=== PATIENT | male | born 1950 | race Caucasian/White ===

== ENCOUNTER 2018-01-15 13:36 | Outpatient (CLI) | payer MEDICARE ==
[2018-01-15 14:02] LABS: BASOPHILS # (AUTO) 0.1 10^3/uL (0.0-0.1); BASOPHILS % (AUTO) 0.6 %; EOSINOPHILS # (AUTO) 0.1 10^3/uL (0.0-0.7); EOSINOPHILS % (AUTO) 0.6 %; HGB - HEMOGLOBIN 17.1 g/dL (14.0-18.0); LYMPHOCYTES # (AUTO) 1.8 10^3/uL (1.5-3.5); LYMPHOCYTES % (AUTO) 20.4 %; MEAN CORPUSCULAR HEMOGLOBIN 30.9 pg (27.0-31.0); MEAN CORPUSCULAR HGB CONC 33.9 g/dL (32.0-36.0); MEAN CORPUSCULAR VOLUME 91.1 fL (80.0-94.0); MEAN PLATELET VOLUME 7.1 fL (7.4-11.4); MONOCYTES # (AUTO) 0.4 10^3/uL (0.0-1.0); MONOCYTES % (AUTO) 4.9 %; NEUTROPHILS # (AUTO) 6.3 10^3/uL (1.5-6.6); NEUTROPHILS % (AUTO) 73.5 %; PLT - PLATELET COUNT 231 10^3/uL (130-450); RED BLOOD COUNT 5.55 10^6/uL (4.70-6.10); RED CELL DISTRIBUTION WIDTH 14.1 % (12.0-15.0); WHITE BLOOD COUNT 8.6 x10^3/uL (4.8-10.8)
[2018-01-15 14:09] LABS: BILIRUBIN,URINE NEGATIVE (NEGATIVE); CLARITY,URINE CLEAR (CLEAR); GLUCOSE, URINE (UA) NEGATIVE (NEGATIVE); KETONES,URINE (UA) NEGATIVE (NEGATIVE); LEUKOCYTE ESTERASE, URINE NEGATIVE (NEGATIVE); NITRITE,URINE NEGATIVE (NEGATIVE); OCCULT BLOOD,URINE MODERATE (NEGATIVE); PROTEIN,URINE NEGATIVE (NEGATIVE); UROBILINOGEN,URINE 0.2 (NORMAL) E.U./dL (NORMAL)
[2018-01-15 14:19] LABS: ALBUMIN 4.3 g/dL (3.2-5.5); ALBUMIN/GLOBULIN RATIO 1.2 (1.0-2.2); ALKALINE PHOSPHATASE 62 IU/L (42-121); ALT ALANINE AMINOTRANSFERASE 24 IU/L (10-60); AST ASPARTATE AMINOTRANSFERASE 23 IU/L (10-42); BILIRUBIN,TOTAL 0.8 mg/dL (0.2-1.0); BUN - BLOOD UREA NITROGEN 17 mg/dL (6-20); CALCIUM 9.2 mg/dL (8.5-10.3); CARBON DIOXIDE - CO2 25 mmol/L (21-32); CHLORIDE 103 mmol/L (101-111); CHOL/HDL RATIO 5.4 (<5.0); CHOLESTEROL 308 mg/dL; CREATININE 0.8 mg/dL (0.6-1.2); GFR - MDRD 96 (>89); GLUCOSE 110 mg/dL (70-100); HDL CHOLESTEROL 57 mg/dL; LDL CHOLESTEROL,CALCULATED 217 mg/dL; LDL/HDL RATIO 3.8 (<3.6); SODIUM 137 mmol/L (135-145); TOTAL PROTEIN 7.8 g/dL (6.7-8.2); VLDL CHOLESTEROL 34 mg/dL
[2018-01-15 14:30] LABS: BACTERIA,URINE Rare /HPF (None Seen); RBC,URINE 0-5 /HPF (0-5); SQUAMOUS EPITHELIAL CELL,UR RARE Squamous (<= Few)
[2018-01-15 14:52] LABS: PSA FREE 0.86 ng/mL (0.16-2.81)
[2018-01-15 14:53] LABS: PSA TOTAL 3.83 ng/mL (0.000-2.000)
[2018-01-15 14:57] LABS: THYROID STIMULATING HORMONE 1.28 uIU/mL (0.34-5.60)
[2018-01-18 11:59] LABS: HEPATITIS C ANTIBODY NON-REACTIVE (NON-REACTIVE)
== END 2018-01-15 13:37 | disposition home or self-care (01) ==
LOC: LAB 13:36
PROVIDERS: ATTEND Internal Medicine
DX: R89.9 Unspecified abnormal finding in specimens from other organs, systems and tissues (principal); F32.9 Major depressive disorder, single episode, unspecified; E78.5 Hyperlipidemia, unspecified; R31.1 Benign essential microscopic hematuria; G60.9 Hereditary and idiopathic neuropathy, unspecified; Z11.59 Encounter for screening for other viral diseases; Z79.899 Other long term (current) drug therapy
CPT/HCPCS: 36415; 80053; 80061; 81001; 82607; 83721; 84154; 84443; 85025; 86803; 87086

== ENCOUNTER 2018-01-25 15:02 | Outpatient (CLI) | payer MEDICARE ==
--- NOTE | 2018-01-25 17:30 | XRAY Report ---
COMPLETE LUMBAR SPINE: 01/25/2018 CLINICAL INDICATION: Back pain. FINDINGS: AP, lateral, oblique, cone down views of the lumbar spine demonstrate mild degenerative disk disease. There is no evidence of fracture or subluxation. Vascular calcifications are present. The bowel gas pattern is unremarkable. IMPRESSION: MILD DEGENERATIVE CHANGES IN THE LUMBAR SPINE. TD: 01/25/2018 15:44
== END 2018-01-25 15:03 | disposition home or self-care (01) ==
LOC: DI 15:02
PROVIDERS: ATTEND Physician Assistant Medical
DX: M51.36 Other intervertebral disc degeneration, lumbar region (principal)
CPT/HCPCS: 72110

== ENCOUNTER 2018-12-16 12:29 | Outpatient (CLI) | payer MEDICARE ==
[2018-12-16 13:27] LABS: ALBUMIN 4.1 g/dL (3.2-5.5); ALBUMIN/GLOBULIN RATIO 1.3 (1.0-2.2); ALKALINE PHOSPHATASE 73 IU/L (42-121); ALT ALANINE AMINOTRANSFERASE 22 IU/L (10-60); AST ASPARTATE AMINOTRANSFERASE 21 IU/L (10-42); BILIRUBIN,TOTAL 0.8 mg/dL (0.2-1.0); BUN - BLOOD UREA NITROGEN 19 mg/dL (6-20); CARBON DIOXIDE - CO2 24 mmol/L (21-32); CHLORIDE 106 mmol/L (101-111); CHOL/HDL RATIO 5.7 (<5.0); CHOLESTEROL 291 mg/dL; CREATININE 0.8 mg/dL (0.6-1.2); GFR - MDRD 96 (>89); GLUCOSE 113 mg/dL (70-100); HDL CHOLESTEROL 51 mg/dL; LDL CHOLESTEROL,CALCULATED 185 mg/dL; LDL/HDL RATIO 3.6 (<3.6); SODIUM 138 mmol/L (135-145); TOTAL PROTEIN 7.3 g/dL (6.7-8.2); VLDL CHOLESTEROL 55 mg/dL
[2018-12-16 14:08] LABS: HB2 TOTAL 17.9 g/dL; HEMOGLOBIN A1C 0.72 g/dL; HEMOGLOBIN A1C % 5.8 % (4.6-6.2)
== END 2018-12-16 12:30 | disposition home or self-care (01) ==
LOC: LAB 12:29
PROVIDERS: ATTEND Internal Medicine
DX: E78.5 Hyperlipidemia, unspecified (principal); R73.02 Impaired glucose tolerance (oral)
CPT/HCPCS: 36415; 80053; 80061; 83036; 83721

== ENCOUNTER 2019-03-15 08:42 | Day surgery (SDC) | payer MEDICARE ==
[2019-03-15] MEDS ORDERED: LACTATED RINGERS 1,000 ML IV ONE (08:44)
[2019-03-15] MEDS ORDERED: fentaNYL 250 MCG/5 ML VIAL IVP ONE (10:29)
[2019-03-15] MEDS ORDERED: MIDAZOLAM 2 MG/2 ML VIAL IVP ONE (10:29)
[2019-03-15 11:03] VITALS: BP 110/79
== END 2019-03-15 08:43 | disposition home or self-care (01) ==
LOC: SDS 08:42
PROVIDERS: ATTEND Internal Medicine Gastroenterology
PROC: 0DBN8ZZ Excision of Sigmoid Colon, Via Natural or Artificial Opening Endoscopic (ICD-10-PCS; 2019-03-15)
PROC: 0DBN8ZZ Excision of Sigmoid Colon, Via Natural or Artificial Opening Endoscopic (ICD-10-PCS; principal; 2019-03-15 10:00)
DX: Z12.11 Encounter for screening for malignant neoplasm of colon (principal); K63.5 Polyp of colon; K57.30 Diverticulosis of large intestine without perforation or abscess without bleeding; Z72.0 Tobacco use
CPT/HCPCS: 45380; 45385; J3010; J7120

== ENCOUNTER 2021-09-19 12:00 | Outpatient (CLI) | payer MEDICARE ==
[2021-09-19 15:01] LABS: BASOPHILS # (AUTO) 0.1 10^3/uL (0.0-0.1); EOSINOPHILS # (AUTO) 0.1 10^3/uL (0.0-0.7); EOSINOPHILS % (AUTO) 1.2 %; HCT - HEMATOCRIT 47.2 % (42.0-52.0); HGB - HEMOGLOBIN 15.9 g/dL (14.0-18.0); LYMPHOCYTES # (AUTO) 1.2 10^3/uL (1.5-3.5); LYMPHOCYTES % (AUTO) 20.8 %; MEAN CORPUSCULAR HEMOGLOBIN 31.7 pg (27.0-31.0); MEAN CORPUSCULAR HGB CONC 33.7 g/dL (32.0-36.0); MEAN CORPUSCULAR VOLUME 94.2 fL (80.0-94.0); MEAN PLATELET VOLUME 9.8 fL (7.4-11.4); MONOCYTES # (AUTO) 0.4 10^3/uL (0.0-1.0); MONOCYTES % (AUTO) 6.2 %; NEUTROPHILS # (AUTO) 4.2 10^3/uL (1.5-6.6); NEUTROPHILS % (AUTO) 70.5 %; PLT - PLATELET COUNT 212 10^3/uL (130-450); RED BLOOD COUNT 5.01 10^6/uL (4.70-6.10); RED CELL DISTRIBUTION WIDTH 12.7 % (12.0-15.0)
[2021-09-19 15:45] LABS: ALBUMIN 4.1 g/dL (3.2-5.5); ALBUMIN/GLOBULIN RATIO 1.2 (1.0-2.2); ALKALINE PHOSPHATASE 62 IU/L (42-121); ALT ALANINE AMINOTRANSFERASE 22 IU/L (10-60); AST ASPARTATE AMINOTRANSFERASE 23 IU/L (10-42); BUN - BLOOD UREA NITROGEN 12 mg/dL (6-20); CALCIUM 9.4 mg/dL (8.5-10.3); CARBON DIOXIDE - CO2 28 mmol/L (21-32); CHLORIDE 103 mmol/L (101-111); CHOL/HDL RATIO 3.9 (<5.0); CHOLESTEROL 197 mg/dL; CREATININE 0.9 mg/dL (0.6-1.2); GFR - MDRD 83 (>89); GLUCOSE 129 mg/dL (70-100); HDL CHOLESTEROL 50 mg/dL; LDL CHOLESTEROL,CALCULATED 116 mg/dL; LDL/HDL RATIO 2.3 (<3.6); POTASSIUM 4.3 mmol/L (3.5-5.0); SODIUM 138 mmol/L (135-145); TOTAL PROTEIN 7.4 g/dL (6.7-8.2); TRIGLYCERIDES 156 mg/dL; VLDL CHOLESTEROL 31 mg/dL
[2021-09-19 20:17] LABS: ESTIMATED AVERAGE GLUCOSE 120 mg/dL (70-100); HEMOGLOBIN A1c% 5.8 % (4.27-6.07)
== END 2021-09-19 12:01 | disposition home or self-care (01) ==
LOC: LAB.S 12:00
PROVIDERS: ATTEND Internal Medicine
DX: I10 Essential (primary) hypertension (principal); E78.5 Hyperlipidemia, unspecified; G62.9 Polyneuropathy, unspecified; R73.02 Impaired glucose tolerance (oral); R35.0 Frequency of micturition
CPT/HCPCS: 36415; 80053; 80061; 82607; 83036; 83721; 84153; 85025

== ENCOUNTER 2021-10-22 11:17 | Outpatient (CLI) | payer MEDICARE ==
--- NOTE | 2021-10-22 14:41 | CT Report ---
PROCEDURE: Low Dose Lung Cancer Screen INDICATIONS: HIST OF SMOKING TECHNIQUE: Noncontrast low-dose images were acquired from the pulmonary apices to the posterior costophrenic ang les. Multiplanar MIP reformats were then acquired. For radiation dose reduction, the following was used: automated exposure control, adjustment of mA and/or kV according to patient size. COMPARISON: None. FINDINGS: Image quality: Excellent. Lungs and pleura: No suspicious pulmonary nodule or mass. No acute airspace opacity. No significant pleural findings. Mediastinum: Heart size is normal. Mild coronary atherosclerosis. No pericardial effusion. No media stinal adenopathy by size criteria. Thoracic aorta and central pulmonary arteries are normal in size . Esophagus is normal in caliber. No hiatal hernia. Bones and chest wall: No suspicious bony lesions. No vertebral body compression fractures. No axil corine or supraclavicular adenopathy by size criteria. Abdomen: Visualized upper abdomen solid organs and bowel loops appear demonstrate no acute finding. IMPRESSION: No suspicious pulmonary nodule or mass. Lung-RADS Category 1. Recommendation: Continued annual screening CT of the chest Reviewed by: Paulino Hebert MD on 10/22/2021 2:39 PM PST Approved by: Paulino Hebert MD on 10/22/2021 2:39 PM PST Station ID: [id number]
== END 2021-10-22 11:18 | disposition home or self-care (01) ==
LOC: DI 11:17
PROVIDERS: ATTEND Internal Medicine
DX: Z12.2 Encounter for screening for malignant neoplasm of respiratory organs (principal); F17.210 Nicotine dependence, cigarettes, uncomplicated

== ENCOUNTER 2021-11-18 10:56 | Outpatient (CLI) | payer MEDICARE ==
--- NOTE | 2021-11-18 12:07 | Ultrasound Report ---
PROCEDURE: Aorta Screening INDICATIONS: SCREENING FOR CARDIOVASCULAR DISORDER TECHNIQUE: Real time scanning was performed of the aorta and iliac arteries, with image documentatio n. COMPARISON: CT of abdomen and pelvis dated 12/26/2013 FINDINGS: Aorta: Proximal aortic diameter measures 2.9 x 2.8 cm. Mid-aorta measures 2.3 x 2.4 cm. Distal aor tic diameter is 2.1 x 2.1 cm. Iliac arteries: Right common iliac artery measures 1.1 x 1.2 cm. Left common iliac artery measures 1.3 x 1.2 cm. Mild to moderate amount of atherosclerotic plaques are noted throughout abdominal aorta. IMPRESSION: No evidence of abdominal aortic aneurysm. Mild to moderate atherosclerotic disease throughout abdomin al aorta. Reviewed by: Dakota Blandon MD on 11/18/2021 12:05 PM PDT Approved by: Dakota Blandon MD on 11/18/2021 12:05 PM PDT Station ID: [id number]
== END 2021-11-18 10:57 | disposition home or self-care (01) ==
LOC: DI 10:56
PROVIDERS: ATTEND Physician Assistant
DX: Z13.6 Encounter for screening for cardiovascular disorders (principal); I70.0 Atherosclerosis of aorta

== ENCOUNTER 2023-06-12 11:36 | Outpatient (CLI) | payer MEDICARE ==
--- NOTE | 2023-06-12 17:03 | CT Report ---
PROCEDURE: Low Dose Lung Cancer Screen INDICATIONS: SCREENING FOR LUNG CA TECHNIQUE: A CT scan of the chest was performed. Intravenous contrast media was not administered. Images were re corded and evaluated at appropriate window settings. Reformats: axial MIP of the chest, coronal and s agittal. For radiation dose reduction, the following was used: automated exposure control, adjustment of mA and/or kV according to patient size. COMPARISON: CT low-dose chest on October 22, 2021. FINDINGS: Image quality: Good accounting for low-dose technique. Prior cancer history: No Lungs and pleura: Compared to CT chest dated October 22, 2021, no new or enlarging solid pulmonary n odules. Subcentimeter calcified granuloma in the left upper lobe, stable. Minimal dependent atelectas is. Mediastinum: Heart size is normal. No pericardial effusion. No large vessel abnormality. No mediastin al adenopathy by size criteria. Mild calcification of the thoracic aorta. Mild coronary vessel calci fications. Chest wall and lower neck: Thyroid is unremarkable. No axillary or supraclavicular adenopathy by size . Bones: No aggressive osseous abnormality. No acute fractures. No aggressive appearing lytic or blasti c osseous lesions. Mild multilevel degenerative changes of the spine. Upper Abdomen: Limited noncontrast images of the upper abdomen demonstrate stable subcentimeter simpl e cysts. Partially visualized colonic diverticulosis, without diverticulitis.. IMPRESSION: 1. Compared to CT chest dated October 22, 2021, no new or enlarging solid pulmonary nodules. Lung RAD: 1 - Negative. Recommendation: Continue annual screening in 12 Months with LDCT 2. Mild coronary vessel calcifications. Reviewed by: Armand Hoover MD on 06/12/2023 5:02 PM PDT Approved by: Armand Hoover MD on 06/12/2023 5:02 PM PDT Station ID: [id number]
== END 2023-06-12 11:37 | disposition home or self-care (01) ==
LOC: DI 11:36
PROVIDERS: ATTEND Physician Assistant
DX: Z12.2 Encounter for screening for malignant neoplasm of respiratory organs (principal); I25.10 Atherosclerotic heart disease of native coronary artery without angina pectoris; I70.0 Atherosclerosis of aorta

== ENCOUNTER 2023-07-03 13:19 | Outpatient (CLI) | payer MEDICARE | END 2023-07-03 13:20 | disposition home or self-care (01) | LOC: LAB 13:19 | PROVIDERS: ATTEND Urology | DX: R97.20 Elevated prostate specific antigen [PSA] (principal) | CPT/HCPCS: 36415; 84153 ==

== ENCOUNTER 2024-02-03 09:29 | Outpatient (CLI) | payer MEDICARE | END 2024-02-03 09:30 | disposition home or self-care (01) | LOC: LAB.S 09:29 | PROVIDERS: ATTEND Urology | DX: R97.20 Elevated prostate specific antigen [PSA] (principal) | CPT/HCPCS: 36415; 84153 ==

== ENCOUNTER 2024-02-16 06:48 | Outpatient (CLI) | payer MEDICARE ==
[2024-02-16] MEDS ORDERED: GADOTERATE MEGLUMINE 10 MMOL/20 ML VIAL ONE (06:56)
[2024-02-16 07:10] LABS: CREATININE 0.9 mg/dL (0.6-1.3)
--- NOTE | 2024-02-16 09:54 | MRI Report ---
PROCEDURE: Pelvis W/WO INDICATIONS: ELEVATED PSA CONTRAST: 18.6ml Clariscan TECHNIQUE: Coronal ultra fast SE, axial T1 FSE with fat saturation, 3-plane nonbreath-hold T2 FSE. After the ad ministration of contrast, dynamic axial, delayed axial and coronal ultra fast GE or 2-D spoiled GE wi th fat saturation through the pelvis. Optional diffusion weighted imaging and ADC may be performed. COMPARISON: None. FINDINGS: Image quality: Diffusion weighted and dynamic contrast enhanced images are diagnostic. Prostate: Gland size is 5.7 x 3.9 x 5.4 cm; ellipsoid gland volume is 62.4 mL. PSA Density: 0.13 Left apex posterior peripheral zone lesion measures 1.7 x 1.9 x 1.6 cm (01/21, 03/20). DWI score 5. T2 score 5. DCE positive. PI RADS 5. Capsular bulging and ill-defined signal raises concern for extracap sular involvement, this is adjacent to the neurovascular bundle. Right apex peripheral zone lesion measures 0.8 x 1 x 1 cm (02/21, 03/16). DWI score 4. T2 score 4. DCE positive. PI RADS 4. The seminal vesicles are clear. Suspected sequelae of BPH seen in the transitional zone. PI RADS 2. Genitourinary system: Underdistended bladder is not well evaluated. The distal ureters are nondilate d Bowel and peritoneum: No small bowel obstruction and lower abdomen. No pathologic ascites. There are colonic diverticula. Nodes and vessels: Prominent pelvic lymph nodes are not enlarged by size criteria. Assuming targeted biopsies are positive, consider prostate PET/CT for further evaluation of micrometastases if clinica lly indicated. No aneurysmal vessel identified. Soft tissues: Unremarkable appearance of the pelvic wall Bones: No suspicious focal enhancement. IMPRESSION: Bilateral PI RADS 4 and 5 lesions as described above. The left apex lesion has capsular bulging suspi cious for capsular invasion in the expected region of the neurovascular bundle. The seminal vesicles are clear. Prominent pelvic lymph nodes are seen not enlarged by size criteria, consider prostate PET/CT to furt her evaluate if targeted biopsies are positive. Reviewed by: Jose Persaud MD on 02/16/2024 9:53 AM PDT Approved by: Jose Persaud MD on 02/16/2024 9:53 AM PDT Station ID: [id number]
[2024-02-16] MEDS: GADOTERATE MEGLUMINE 10 MMOL/20 ML VIAL IVP ONE (17:47)
== END 2024-02-16 06:49 | disposition home or self-care (01) ==
LOC: DI 06:48
PROVIDERS: ATTEND Urology
DX: N42.9 Disorder of prostate, unspecified (principal)
CPT/HCPCS: 36415; 72197; 82565; A9575